=== PATIENT | female | born 1985 | race African-American/Black ===

== ENCOUNTER 2021-03-20 07:44 | Emergency (ER) | payer SELFPAY ==
[~2021-03-20] VITALS: Ht 170.2 cm; Wt 74.8 kg
[2021-03-20] MEDS ORDERED: SODIUM CHLORIDE 0.9% 1000ML 1,000 ML IV STA (07:55)
[2021-03-20] MEDS ORDERED: ONDANSETRON HCL INJ 2MG/ML 2ML 2 MG/ML VIAL IV PRN (08:00)
[2021-03-20] MEDS ORDERED: FENTANYL CITRATE/PF 100MCG/2 ML INJ IV PRN (08:00)
[2021-03-20 08:19] LABS: CLARITY,URINE CLOUDY (CLEAR); COLOR,URINE YELLOW (YELLOW); KETONES,URINE NEGATIVE (NEGATIVE); LEUKOCYTE ESTERASE ,URINE TRACE (NEGATIVE); NITRITE,URINE POSITIVE (NEGATIVE); PROTEIN,URINE DIPSTICK NEGATIVE (NEGATIVE); URINE UROBILINOGEN 0.2 mg/dL (0.2 - 1)
[2021-03-20 08:37] LABS: BACTERIA,URINE MANY /HPF; EPITHELIAL CELLS,URINE FEW /LPF
[2021-03-20 08:49] LABS: BASOPHILS % 0.4 % (0.0-1.0); EOSINOPHILS # (AUTO) 0.1 (0.0-0.4); EOSINOPHILS % 1.5 % (0.0-6.0); HEMOGLOBIN 10.8 g/dL (12.0-16.0); LYMPHOCYTES # (AUTO) 2.3 (1.0-3.2); LYMPHOCYTES % 32.2 % (18.0-39.1); MEAN CORPUSCULAR HEMOGLOBIN 24.7 pg (28-32); MEAN CORPUSCULAR HGB CONC 31.8 g/dL (31-35); MEAN CORPUSCULAR VOLUME 77.8 fL (81-99); MONOCYTES # (AUTO) 0.4 (0.2-0.8); MONOCYTES % 5.9 % (4.4-11.3); NEUTROPHILS # (AUTO) 4.3 (2.1-6.9); NEUTROPHILS % 59.6 % (38.7-80.0); PLATELET COUNT 359 x10e3/uL (140-360); RED BLOOD COUNT 4.37 x10e6/uL (3.6-5.1); RED CELL DISTRIBUTION WIDTH 14.5 % (11.7-14.4)
[2021-03-20] MEDS ORDERED: KETOROLAC TROMETHAMINE 30 MG/ML VIAL IV STA (09:22)
[2021-03-20 09:32] LABS: ALBUMIN 3.7 g/dL (3.5-5.0); ANION GAP 11.8 mmol/L (8-16); CALCIUM 9.2 mg/dL (8.4-10.2); CREATININE, SERUM 0.75 mg/dL (0.57-1.11); POTASSIUM 3.8 mmol/L (3.5-5.1)
[2021-03-20] MEDS ORDERED: IOPAMIDOL 370 MG/ML 200 ML INFUS..BTL INJ ONE (10:10)
[2021-03-20] MEDS ORDERED: SODIUM CHLORIDE 0.9% 50ML 0 ML ONE (10:10)
[2021-03-20 10:22] LABS: HCG,QUANTITATIVE 967.89 mIU/mL (0-10)
[2021-03-20] MEDS ORDERED: CEFTRIAXONE 1 GM VIAL IV ONE (11:00)
[2021-03-20] MEDS ORDERED: CEFTRIAXONE 1 GM in SODIUM CHLORIDE 0.9% 50ML 50 ML IV ONE (11:30)
[2021-03-20] MEDS ORDERED: BUTORPHANOL TARTRATE 2 MG/ML VIAL IV ONE (12:20)
== END 2021-03-20 15:15 | disposition home or self-care (01) ==
LOC: ER 08:00
DX: O26.91 Pregnancy related conditions, unspecified, first trimester (principal); N94.89 Other specified conditions associated with female genital organs and menstrual cycle; R10.2 Pelvic and perineal pain
CPT/HCPCS: 36415; 76801; 76817; 80053; 81001; 84702; 85025; 99284; J0595; J0696; J2405; J3010; J7030; Q9967

== ENCOUNTER 2021-03-22 09:08 | Emergency (ER) | payer SELFPAY ==
[~2021-03-22] VITALS: Ht 170.2 cm; Wt 74.8 kg
[2021-03-22] MEDS ORDERED: SODIUM CHLORIDE 0.9% 1000ML 1,000 ML IV STA ×2 (09:16→11:48)
[2021-03-22] MEDS ORDERED: ONDANSETRON HCL INJ 2MG/ML 2ML 2 MG/ML VIAL IV STA (09:19)
[2021-03-22] MEDS ORDERED: BUTORPHANOL TARTRATE 2 MG/ML VIAL IV ONE (09:30)
[2021-03-22 09:31] LABS: BASOPHILS % 0.4 % (0.0-1.0); EOSINOPHILS # (AUTO) 0.1 (0.0-0.4); HEMATOCRIT 35.5 % (34.2-44.1); HEMOGLOBIN 11.1 g/dL (12.0-16.0); LYMPHOCYTES # (AUTO) 2.4 (1.0-3.2); MEAN CORPUSCULAR HEMOGLOBIN 24.7 pg (28-32); MEAN CORPUSCULAR HGB CONC 31.3 g/dL (31-35); MEAN CORPUSCULAR VOLUME 79.1 fL (81-99); MONOCYTES # (AUTO) 0.5 (0.2-0.8); MONOCYTES % 6.6 % (4.4-11.3); NEUTROPHILS # (AUTO) 4.8 (2.1-6.9); NEUTROPHILS % 60.5 % (38.7-80.0); PLATELET COUNT 354 x10e3/uL (140-360); RED BLOOD COUNT 4.49 x10e6/uL (3.6-5.1); RED CELL DISTRIBUTION WIDTH 14.3 % (11.7-14.4)
[2021-03-22 10:02] LABS: INR 0.93; PROTHROMBIN TIME 13.1 seconds (11.9-14.5)
[2021-03-22 10:03] LABS: PARTIAL THROMBOPLASTIN TIME 34.4 seconds (23.8-35.5)
[2021-03-22 10:06] LABS: ANION GAP 13.1 mmol/L (8-16); CALCIUM 9.2 mg/dL (8.4-10.2); CREATININE, SERUM 0.77 mg/dL (0.57-1.11); POTASSIUM 4.1 mmol/L (3.5-5.1)
[2021-03-22 10:13] LABS: HCG,QUANTITATIVE 568.57 mIU/mL (0-10)
[2021-03-22] MEDS ORDERED: FENTANYL CITRATE/PF 100MCG/2 ML INJ IV ONE (12:00)
[2021-03-22] MEDS ORDERED: HYDROMORPHONE 1MG/1ML INJ IV STA (12:42)
[2021-03-22] MEDS ORDERED: HYDROMORPHONE 1MG/1ML INJ ONE (12:58)
== END 2021-03-22 14:26 | disposition other institution (70) ==
LOC: ER 09:12
DX: O00.90 Unspecified ectopic pregnancy without intrauterine pregnancy (principal); R10.30 Lower abdominal pain, unspecified; R11.0 Nausea; Z20.822 Contact with and (suspected) exposure to COVID-19
CPT/HCPCS: 36415; 51700; 76817; 80048; 84702; 85025; 85610; 85730; 86900; 99284; J0595; J1170; J2405; J3010; J7030; U0002

== ENCOUNTER 2021-06-09 15:18 | Emergency (ER) | payer SELFPAY ==
[~2021-06-09] VITALS: Ht 170.2 cm; Wt 72.6 kg
== END 2021-06-09 17:44 | disposition home or self-care (01) ==
LOC: ER 15:40
DX: R07.89 Other chest pain (principal); D17.1 Benign lipomatous neoplasm of skin and subcutaneous tissue of trunk; Z33.1 Pregnant state, incidental
CPT/HCPCS: 99283